=== PATIENT | female | born 1980 | race Two or more races ===

== ENCOUNTER 2022-06-07 12:44 | Outpatient (REF) | payer OTHER, SELFPAY ==
--- NOTE | ~2022-06-07 | XR_ITS ---
EXAMINATION: THE THORACIC AND LUMBAR SPINE X-RAYS CLINICAL INFORMATION: Pain COMPARISON: None TECHNIQUE: 3 views of the thoracic spine and 3 views of the lumbar spine FINDINGS: Lumbar spine: There is mild curvature of the lumbar spine to the right. Bone alignment is otherwise normal. Disc spaces are normal. Paraspinal soft tissues are normal. Thoracic spine: There is mild curvature of the lower thoracic spine to the left. Bone alignment is otherwise normal. No fracture or dislocation. Normal disc spaces. Normal paraspinal soft tissues. XR/XR lumbar spine 2-3V IMPRESSION: Mild thoracolumbar scoliosis. Otherwise unremarkable exam.
--- NOTE | ~2022-06-07 | XR_ITS ---
EXAMINATION: THE THORACIC AND LUMBAR SPINE X-RAYS CLINICAL INFORMATION: Pain COMPARISON: None TECHNIQUE: 3 views of the thoracic spine and 3 views of the lumbar spine FINDINGS: Lumbar spine: There is mild curvature of the lumbar spine to the right. Bone alignment is otherwise normal. Disc spaces are normal. Paraspinal soft tissues are normal. Thoracic spine: There is mild curvature of the lower thoracic spine to the left. Bone alignment is otherwise normal. No fracture or dislocation. Normal disc spaces. Normal paraspinal soft tissues. XR/XR thoracic spine 2V IMPRESSION: Mild thoracolumbar scoliosis. Otherwise unremarkable exam.
== END 2022-06-07 12:45 | disposition home or self-care (01) ==
LOC: HO.XRAY 12:44
PROVIDERS: Visit Provider Nurse Practitioner Primary Care
DX: M54.50 Low back pain, unspecified (principal); M54.6 Pain in thoracic spine
CPT/HCPCS: 72070; 72100